=== PATIENT | male | born 1955 | race Caucasian/White ===

== ENCOUNTER 2016-05-24 19:09 | Emergency (ER) | payer OTHER ==
[2016-05-24 19:33] VITALS: BP 138/87; PULSE 86; TEMP 97.9; BMI 23.5
[2016-05-24] MEDS ORDERED: DIPHTH,PERTUSS(ACELL),TET 0.5 ML DISP.SYRIN IM ONE (19:46)
[2016-05-24] MEDS ORDERED: IBUPROFEN 400 MG TABLET (FP) PO ONE ×2 (19:46→19:49)
--- NOTE | 2016-05-24 19:50 | PDOC ---
History of Present Illness - General Chief Complaint: Laceration Stated Complaint: LACERATION Time Seen by Provider: 05/24/16 19:42 History Source: Patient - History of Present Illness Occurred: reports: this evening Upper Extremity Pain Location: left: 2nd finger Method of Injury: reports: other Past History - Past Medical History Allergies/Adverse Reactions: Allergies Allergy/AdvReac Type Severity Reaction Status Date / Time No Known Allergies Allergy Verified 05/24/16 19:30 Home Medications: Ambulatory Orders Acetaminophen [Tylenol .Extra-Strength -] 500 mg PO Q6H #20 tablet 06/21/14 Cyclobenzaprine HCl [Flexeril -] 10 mg PO HS PRN MDD 3 05/24/16 Anemia: Yes Other medical history: chr neck pain - Surgical History Appendectomy: Yes - Immunization History Immunization Up to Date: No - Psycho/Social/Smoking Cessation Hx Anxiety: No Suicidal Ideation: No Smoking History: Never smoked Hx Alcohol Use: No Drug/Substance Use Hx: No Substance Use Type: None Review of Systems - Review of Systems Neurological: No: Numbness, Tingling *Physical Exam - Vital Signs Last Vital Signs Temp Pulse Resp BP Pulse Ox 97.9 F 86 18 138/87 97 05/24/16 19:32 05/24/16 19:32 05/24/16 19:32 05/24/16 19:32 05/24/16 19:32 - Physical Exam General Appearance: Yes: Appropriately Dressed. No: Apparent Distress HEENT: positive: Normal Voice Neck: positive: Supple Respiratory/Chest: negative: Respiratory Distress Extremity: positive: Other (partial nail avulsion to L index, no other obvious deformity, sensation intact) Integumentary: positive: Dry, Warm Neurologic: positive: Fully Oriented, Alert, Normal Mood/Affect Procedures - Laceration/Wound Repair Left Finger Wound Length: to 2.5 cm Wound Explored: clean Irrigated w/ Saline: Yes Betadine Prep: Yes Anesthesia: 1% Lidocaine Wound Repaired With: Sutures Suture Size/Type: 5:0 (chromic gut to nailbed) ED Treatment Course - RADIOLOGY Radiology Studies Ordered: Category Date Time Status FINGER(S) LEFT [RAD] Stat Radiology 05/24/16 19:46 Ordered Medical Decision Making - Medical Decision Making 05/24/16 19:47 60-year-old male, denies any past medical history, here w/ partial nail avulsion to left index finger after injury at work tonight. Patient states he was working with a circular saw that accidentally struck finger. Pt in mild distress w/ partial nail avulsion on exam -pain control -tetanus -XR r/o fx -nail removal and nail bed lac repair as necessary 05/24/16 19:49 05/24/16 20:30 Tuft fx on XR. Nail removed s/p digital block revealing nail bed lac which was repaired w/ absorbable sutures. Compression dressing placed. Dc w/ keflex and wound check as needed in ED. Pt given hand f/u 2/2 open fx 05/24/16 21:31 *DC/Admit/Observation/Transfer Diagnosis at time of Disposition: Finger fracture, left Nail avulsion, finger Qualifiers: Encounter type: initial encounter Qualified Code(s): S61.309A - Unspecified open wound of unspecified finger with damage to nail, initial encounter - Discharge Dispostion Disposition: HOME Condition at time of disposition: Improved - Referrals Referrals: Gonsalo Fuentes [Primary Care Provider] - - Patient Instructions Printed Discharge Instructions: DI for Nail Avulsion Injury, DI for Finger Fracture Additional Instructions: Por favor, sumerja el dedo en agua tibia en 48 horas despus del procedimiento, luego aplique un antibitico tpico irene bacitracina o Neosporin diariamente para clavar el sitio y aplique un nuevo apsito. El apsito debe repetirse diariamente hasta que las costras del sitio terminen. [place] los antibiticos seg n las indicaciones y vuelva a la [place] en 2 parker para detectar cualquier signo de infeccin. Cipriano aproximadamente 3-4 meses para que tu ua crezca de nuevo.Stiches son absorbibles Jonathon rogel fractura de dedo, debe seguir con el [facility]
[2016-05-24] MEDS ORDERED: CEPHALEXIN MONOHYDRATE 500 MG CAPSULE (UD) PO ONE (20:23)
[2016-05-24] MEDS ORDERED: CEPHALEXIN MONOHYDRATE 500 MG CAPSULE (UD) ONE (20:26)
== END 2016-05-24 21:37 | disposition home or self-care (01) ==
LOC: JERFT 19:09
PROC: 0HBQXZZ Excision of Finger Nail, External Approach (ICD-10-PCS; principal; 2016-05-24)
PROC: 0HQGXZZ Repair Left Hand Skin, External Approach (ICD-10-PCS; 2016-05-24)
PROC: 3E0234Z Introduction of Serum, Toxoid and Vaccine into Muscle, Percutaneous Approach (ICD-10-PCS; 2016-05-24)
DX: S62.631B Displaced fracture of distal phalanx of left index finger, initial encounter for open fracture (principal); S61.311A Laceration without foreign body of left index finger with damage to nail, initial encounter; W29.8XXA Contact with other powered hand tools and household machinery, initial encounter; Y93.89 Activity, other specified; Y92.89 Other specified places as the place of occurrence of the external cause; Y99.0 Civilian activity done for income or pay
CPT/HCPCS: 73140-TC-LT; 90715; 99281-25

== ENCOUNTER 2023-10-04 13:32 | Emergency (ER) | payer OTHER ==
[2023-10-04 13:36] VITALS: BP 125/72; PULSE 79; RESP 18; TEMP 98.2; BMI 24.3
[2023-10-04] MEDS ORDERED: ACETAMINOPHEN 500 MG TABLET (FP) ONE (14:09)
[2023-10-04] MEDS: ACETAMINOPHEN 500 MG TABLET (FP) PO ONE (14:11)
[2023-10-04] MEDS ORDERED: DIPHTH,PERTUSS(ACELL),TET 0.5 ML DISP.SYRIN IM ONE (14:36)
[2023-10-04] MEDS: DIPHTH,PERTUSS(ACELL),TET 0.5 ML DISP.SYRIN IM ONE (14:39)
== END 2023-10-04 14:53 | disposition home or self-care (01) ==
LOC: JERFT 13:32
PROC: 3E0234Z Introduction of Serum, Toxoid and Vaccine into Muscle, Percutaneous Approach (ICD-10-PCS; principal; 2023-10-04)
DX: S61.207A Unspecified open wound of left little finger without damage to nail, initial encounter (principal); W23.0XXA Caught, crushed, jammed, or pinched between moving objects, initial encounter; Z23 Encounter for immunization
CPT/HCPCS: 73140-TC-LT-FY; 90715; 99283-25